=== PATIENT | female | born 1985 | race Caucasian/White ===

== ENCOUNTER 2023-10-13 23:33 | Emergency (ER) | payer BC, SELFPAY ==
[2023-10-13 23:44] VITALS: PULSE 89; O2SAT 100
[2023-10-13 23:45] VITALS: BP 195/97; PULSE 91; RESP 20; TEMP 36.5; O2SAT 100; BMI 37.2
--- NOTE | 2023-10-13 23:46 | EKG_ITS ---
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
[2023-10-13 23:59] VITALS: BP 174/94
[2023-10-14] VITALS: BP 172/92; PULSE 88; O2SAT 99
--- NOTE | 2023-10-14 00:17 | ED_ITS ---
HPI - Anxiety General Chief Complaint: Anxiety Stated Complaint: Anxiety attack Time Seen by Provider: 10/13/23 23:47 Source: patient Mode of arrival: Ambulatory History of Present Illness HPI narrative: 37-year-old woman recently diagnosed with hypertension and started on carvedilol and amlodipine in the process of downsizing, moving from [place] to [place]. New house, new sclera for her 9-year-old, her daughter is going to [employer]. Significant lives stressors. All of these began to accumulate this evening to the point that she had significant anxiety which she than chose to investigate on [employer]. This exacerbated her symptoms and she came into the emergency room for further evaluation. She gets be getting close enough to the hospital for evaluation was enough to help calm her dramatically. She chose to still check in and be evaluated. By the time were talking she feels she is back to her baseline has been able to calm herself and recognizes that she simply was over stressed over multiple different changes currently occurring in her life. She has not complaining of chest pain, dyspnea, palpitations no abdominal pain no nausea, vomiting, diarrhea. Related Data Previous Rx's Medication Instructions Recorded ibuprofen 600 mg tablet 600 mg PO Q6H PRN pain #30 tabs 03/27/23 lorazepam 0.5 mg tablet (Ativan) 0.5 mg PO BID PRN anxiety #10 tabs 10/14/23 Allergies Allergy/AdvReac Type Severity Reaction Status Date / Time No Known Drug Allergies Allergy Unverified 03/27/23 09:51 Review of Systems Review of Systems Narrative: Pertinent positive and negative findings as per HPI Patient History Medical History (Updated 10/14/23 @ 00:35 by Delores Crocker MD) Hypertension Social History Smoking Status: Never smoker Smoking Status: Never smoker alcohol intake frequency: 3 or more drinks per day Substance Use Type: marijuana and crack/cocaine Exam Initial Vital Signs Initial Vital Signs: Vital Signs Pulse Rate 89 10/13/23 23:44 Pulse Oximetry 100 10/13/23 23:44 General: Alert appropriate in no acute distress Respiratory: Able to speak in full sentences, no obvious respiratory distress Skin: No obvious rashes, warm and dry Neurologic: Grossly intact no obvious asymmetries or abnormalities Psych: appropriate insight and affect, cooperative. Calm, good eye contact no significant anxiety at this time. No suicidal or homicidal ideation Course Orders Ordered: ED Orders 10/13/23 23:46 EKG-12 Lead Stat Vital Signs Vital signs: Vital Signs - 8 hr 10/13/23 23:44 10/13/23 23:45 10/13/23 23:59 Temperature 97.7 F Pulse Rate 89 91 H Respiratory Rate 20 Blood Pressure 195/97 H 174/94 H Pulse Oximetry 100 100 Oxygen Delivery Method Room Air 10/14/23 00:00 10/14/23 00:00 Temperature Pulse Rate 88 Respiratory Rate Blood Pressure 172/92 H Pulse Oximetry 99 Oxygen Delivery Method MDM - Anxiety MDM Narrative Medical decision making narrative: 37-year-old woman with multiple psychosocial stressors including moving from 1 house to another, 1 child leaving for college, another child starting a new school, new jobs for both she and her , recent diagnosis of hypertension and simply became overwhelmed this evening. She was eventually able to calm herself but comes in for further evaluation. There is no evidence of acute coronary syndrome, stroke or alternative diagnosis that would require workup or imaging today. She is feeling much more grounded at this point we talked about the use of Ativan for severe anxiety should it develop again within the next couple of weeks. She has some concrete plans for dealing with her anxiety and believes that when she is moved into her house which is happening tomorrow when they return to [facility] like that she will be able to feel more grounded. She is not suicidal or homicidal. Questions were answered she is safe for discharge Discharge Plan Departure Patient Disposition: Home Clinical Impression: Acute anxiety Instructions: DI for Anxiety -- Adult Activity Restrictions/Additional Instructions: Thank you for coming in tonight I am glad that you are feeling better. Please do recognize that you are under significant amount of stressors from multiple different areas of your life. The anxiety feelings are real, it is okay to recognize them in the is okay to let them go. I would recommend that you do continue your blood pressure medications as recently prescribed. Checking once a day regarding blood pressure is really all that you need to do. More than that can actually make the anxiety worse. I have given you a prescription for Ativan. This is a benzodiazepine. It is specifically for acute anxiety. Sometimes simply knowing that it is available in your purse if you are anxiety is getting worse is all that you need. If you do choose to use 1 it can help hold the emotions slightly more distant from your Internal reality so that you can be more in control. If you find that you are getting worse or having new symptoms please feel free to return to the ER I wish you the best with your new move an your son's new school in your daughter's exciting life off at college Prescriptions: New lorazepam [Ativan] 0.5 mg tablet 0.5 mg PO BID PRN (Reason: anxiety) Qty: 10 0RF No Action ibuprofen 600 mg tablet 600 mg PO Q6H PRN (Reason: pain) Qty: 30 0RF Referrals: Miscellaneous,Doctor, MD [Primary Care Provider] - Stand Alone Forms: Patient Portal/API
[2023-10-14 00:30] VITALS: BP 160/90; PULSE 87; O2SAT 99
== END 2023-10-14 00:41 | disposition home or self-care (01) ==
PROVIDERS: Emergency Provider Emergency Medicine
DX: F41.9 Anxiety disorder, unspecified (principal); R07.9 Chest pain, unspecified
CPT/HCPCS: 93005; 93010; 99281; 99283